=== PATIENT | female | born 1990 | race Caucasian/White ===

== ENCOUNTER 2018-09-02 10:00 | Inpatient (IN) | payer OTHER, SELFPAY ==
[2018-09-02 10:50] LABS: HCT 35.3 % (36.0-46.0); HGB 11.7 g/dL (12.0-15.5); Mean Corp. HGB Concentration 33.1 g/dL (32.0-36.0); Mean Corpuscular Volume 87.4 fL (80-95); Mean Platelet Volume 10.6 fL (8.0-11.0); Platelet Count 173 x1000/uL (130-400); RBC 4.04 m/cumm (4.00-5.20); RBC Distribution Width 13.1 % (11.7-14.6); White Blood Cell Count 11.42 k/cumm (4.4-10.8)
--- NOTE | 2018-09-02 10:59 | W.PM.HP.N ---
History of Present Illness 27 yo @ 41 3/ by early sono and LMP. aside from well controlled hypothyroid and RH neg she has no risk factors. early and freq PN visits, nl labs per attached PN forms antibody screen neg first trimester over the past 24 hrs prodromal ctx -, now closer and more intense. intact membranes, vtx, no kim, visual changes, abd pain, fever, uti sx taking fluids well, slept intermittently in office 0730 NST Cat 1, cervix 4 cm/80/-2/vtx/intact exam: vitals good alert, comfortable lungs0 clear no thyroid palpable cvs - reg, no murmur abd - 39 cm fundal ht - soft, non-tender uterus save with ctx scant distal edema NST - Cat 1 with ctx q 3-5 mod/strong, no decels cervix 6-7/100/-2/bulging/vtx Ass: Term IUP in active labor RH neg GBS neg Hypothyroid - TSH, T4, TSI all in range recently Maternal and wellbeing Low risk for Shoulders - proven pelvis, est FWT 3200 gm Plan: ADmit, expect asses blood type re possible need for Rhogam Dr. Ramos aware of patient, case and plan. s. [place] Meds Allergies Allergy/AdvReac Type Severity Reaction Status Date / Time No Known Allergies Allergy Unverified 09/02/18 11:04 Results Labs : 09/02/18 10:23 Laboratory Results - last 24 hr 09/02/18 10:23 WBC 11.42 H RBC 4.04 Hgb 11.7 L Hct 35.3 L MCV 87.4 MCH 29.0 MCHC 33.1 RDW 13.1 Plt Count 173 MPV 10.6
[2018-09-02] MEDS: Normal Saline Flush 10 ML SYR IVP (11:02)
[2018-09-02] MEDS: Ibuprofen 600 MG TAB PO (20:01)
[2018-09-02] MEDS: Acetaminophen 325 MG TAB 650 MG PO (20:01)
[2018-09-03] MEDS: Acetaminophen 325 MG TAB 650 MG PO ×3 (04:26→17:46)
[2018-09-03] MEDS: Ibuprofen 600 MG TAB PO ×3 (04:26→17:46)
[2018-09-03 08:11] LABS: HCT 23.9 % (36.0-46.0); HGB 7.8 g/dL (12.0-15.5); Mean Corp. HGB Concentration 32.6 g/dL (32.0-36.0); Mean Corpuscular Hemoglobin 29.1 pg (27.0-33.0); Mean Corpuscular Volume 89.2 fL (80-95); Mean Platelet Volume 10.2 fL (8.0-11.0); Platelet Count 136 x1000/uL (130-400); RBC 2.68 m/cumm (4.00-5.20); RBC Distribution Width 13.1 % (11.7-14.6); White Blood Cell Count 10.86 k/cumm (4.4-10.8)
--- NOTE | 2018-09-03 15:47 | W.PM.HP.N ---
History of Present Illness Discharge Summary: Rg delivered 8# 10 oz girl with vacuum assist. PP hemm managed with iv Pit, oral miso and manual clot removal. Lochia minimal - [id number] drop in h/h in part due to three liters IV fluids leading to some dilutional effect 7.8 = hgb she took her usual synthroid doses doing all self care and confident with care consdering implanon for contraception blood type O+ hence Rg got approp Rhogam dose Exam: alert, not pale or dizzy soft abd - firm ut 2-3 below umb no edema distally Ass: PP hemm with expected anemia - she will take high iron foods, pn vits and start oral Iron - f/u h/h scheduled for 48 hrs - given no clinical signs of hypo tension or orthostasis reasonable for out pt f/u Routine pp instructions reviewed Plan: f/u [place] tues am 10 - call or seek care sooner if questions or problems [facility] Social History Smoking/Tobacco Use Status: Never Meds Home Medications Medication Instructions Recorded Confirmed Type levothyroxine 75 mcg PO DAILY 09/02/18 09/02/18 History Allergies Allergy/AdvReac Type Severity Reaction Status Date / Time No Known Allergies Allergy Unverified 09/02/18 11:04 Results Labs : 09/03/18 07:38 Laboratory Results - last 24 hr 09/02/18 09/03/18 10:23 07:38 WBC 10.86 H RBC 2.68 L Hgb 7.8 L D Hct 23.9 L D MCV 89.2 MCH 29.1 MCHC 32.6 RDW 13.1 Plt Count 136 MPV 10.2 Unit Expiration Date 09/24/19 Product Lot # [id number]
--- NOTE | 2018-09-03 15:53 | HPE_ITS ---
History of Present Illness Discharge Summary: Rg delivered 8# 10 oz girl with vacuum assist. PP hemm managed with iv Pit, oral miso and manual clot removal. Lochia minimal - [id number] drop in h/h in part due to three liters IV fluids leading to some dilutional effect 7.8 = hgb she took her usual synthroid doses doing all self care and confident with care consdering implanon for contraception blood type O+ hence Rg got approp Rhogam dose Exam: alert, not pale or dizzy soft abd - firm ut 2-3 below umb no edema distally Ass: PP hemm with expected anemia - she will take high iron foods, pn vits and start oral Iron - f/u h/h scheduled for 48 hrs - given no clinical signs of hypo tension or orthostasis reasonable for out pt f/u Routine pp instructions reviewed Plan: f/u [place] tues am 10 - call or seek care sooner if questions or problems Lilia Syed [facility] Social History Smoking/Tobacco Use Status: Never Meds Home Medications Medication Instructions Recorded Confirmed Type levothyroxine 75 mcg PO DAILY 09/02/18 09/02/18 History Allergies Allergy/AdvReac Type Severity Reaction Status Date / Time No Known Allergies Allergy Unverified 09/02/18 11:04 Results Labs : 09/03/18 07:38 Laboratory Results - last 24 hr 09/02/18 09/03/18 10:23 07:38 WBC 10.86 H RBC 2.68 L Hgb 7.8 L D Hct 23.9 L D MCV 89.2 MCH 29.1 MCHC 32.6 RDW 13.1 Plt Count 136 MPV 10.2 Unit Expiration Date 09/24/19 Product Lot # [id number]
== END 2018-09-03 18:34 | disposition home or self-care (01) | DRG 807 ==
PROVIDERS: Admitting Provider Family Medicine; PCP Family Medicine; Visit Provider Family Medicine
DX: O75.81 Maternal exhaustion complicating labor and delivery (principal); Z37.0 Single live birth; O48.0 Post-term pregnancy; Z3A.41 41 weeks gestation of pregnancy; O72.1 Other immediate postpartum hemorrhage; O76 Abnormality in fetal heart rate and rhythm complicating labor and delivery; O70.0 First degree perineal laceration during delivery; O26.893 Other specified pregnancy related conditions, third trimester; O99.284 Endocrine, nutritional and metabolic diseases complicating childbirth; E05.00 Thyrotoxicosis with diffuse goiter without thyrotoxic crisis or storm
CPT/HCPCS: 36415; 85027; 85461; 86850; 86900; 86901; 90384; NC; J2790